=== PATIENT | female | born 1990 | race Caucasian/White ===

== ENCOUNTER 2018-01-13 09:47 | Emergency (ER) | payer OTHER ==
[~2018-01-13] VITALS: Ht 152.4 cm; Wt 59.0 kg
[2018-01-13 10:03] VITALS: BP 124/77
== END 2018-01-13 13:20 | disposition admitted as inpatient to this hospital (09) ==
LOC: ERH 09:47
DX: S01.511A Laceration without foreign body of lip, initial encounter (principal)